=== PATIENT | male | born 1985 | race American Indian/Alaskan Native ===

== ENCOUNTER 2022-08-19 21:04 | Emergency (ER) | payer MEDICAID ==
[2022-08-19] MEDS ORDERED: Sodium Chloride 0.9% 10 ML Syringe FLUSH PRN (21:12)
[2022-08-19] MEDS ORDERED: Thiamine 100 MG in Sodium Chloride 0.9% 50 ML IV ONE (21:13)
[2022-08-19] MEDS ORDERED: Sodium Chloride 0.9% 1,000 ML IV ONE (21:13)
[2022-08-19] MEDS ORDERED: LORazepam 2 MG/ML SDV IVPUSH ONE (21:13)
[2022-08-19 21:38] LABS: BASOPHILS ABSOLUTE AUTO 0.1 x10-3/uL (0.0-0.3); EOSINOPHILS ABSOLUTE AUTO 0.1 x10-3/uL (0.0-0.6); EOSINOPHILS PERCENT AUTO 0.8 % (0.1-6.8); HEMATOCRIT 50.8 % (38.3-50.1); HEMOGLOBIN 17.6 g/dL (12.9-17.7); LYMPHOCYTES ABSOLUTE AUTO 3.7 x10-3/uL (0.5-4.5); LYMPHOCYTES PERCENT AUTO 48.1 % (15.8-45.3); MEAN CORPUSCULAR HEMOGLOBIN 31.8 pg (27.0-33.3); MEAN CORPUSCULAR HGB CONC 34.7 g/dL (28.7-35.3); MEAN CORPUSCULAR VOLUME 91.5 fL (80.8-98.7); MEAN PLATELET VOLUME 8.2 fL (6.7-11.0); MONOCYTES ABSOLUTE AUTO 0.4 x10-3/uL (0.0-1.2); MONOCYTES PERCENT AUTO 5.9 % (5.5-15.2); NEUTROPHILS ABSOLUTE AUTO 3.4 x10-3/uL (1.7-6.9); NEUTROPHILS PERCENT AUTO 44.2 % (40.3-71.8); PLATELET COUNT,PLT 229 x10(3)uL (117-477); RED BLOOD CELL COUNT 5.55 x10(6)uL (3.90-5.90); RED CELL DISTRIBUTION WIDTH 14.4 % (12.4-15.0); WHITE BLOOD CELL COUNT,WBC 7.6 x10-3/uL (3.2-10.1)
[2022-08-19 21:39] LABS: BLOOD UREA NITROGEN,BUN 10 mg/dL (7-18); BUN/CREATININE RATIO 12.5 (9-20); CALCIUM 8.7 mg/dL (8.6-10.2); CARBON DIOXIDE,CO2 28 mmol/L (21-32); CHLORIDE,CL 103 mmol/L (100-110); CREATININE 0.8 mg/dL (0.70-1.30); ESTIMATED GFR 118 mL/min (>60); GLUCOSE RANDOM 276 mg/dL (80-116); POTASSIUM,K 3.7 mmol/L (3.5-5.3); SODIUM,NA 143 mmol/L (135-145)
[2022-08-19 21:45] LABS: ALANINE AMINOTRANSFERASE,ALT 48 U/L (12-36); ALKALINE PHOSPHATASE 134 IU/L (56-112); ASPARTATE AMNIOTRANSFERASE,AST 24 IU/L (5-25); BILIRUBIN TOTAL 0.2 mg/dL (0.1-1.3)
[2022-08-19] MEDS ORDERED: LORazepam 2 MG/ML SDV IVPUSH PRN (22:11)
[2022-08-19] MEDS ORDERED: Sodium Chloride 0.9% 1,000 ML IV SCH (22:15)
[2022-08-20] MEDS: Ondansetron 4 MG/2 ML SDV IVPUSH SCH (06:00)
== END 2022-08-20 06:02 | disposition home or self-care (01) ==
LOC: FB.ED 21:04
DX: F10.229 Alcohol dependence with intoxication, unspecified (principal); Y90.2 Blood alcohol level of 40-59 mg/100 ml
CPT/HCPCS: 36415; 80053; 80307; 85025; 96361; 96365; 96375; 99284; J2060; J3411; J3490; J7030

== ENCOUNTER 2022-09-01 12:18 | Inpatient (IN) | payer MEDICAID ==
[2022-09-01] MEDS: Sodium Chloride 0.9% 10 ML Syringe FLUSH PRN ×3 (12:20→19:25)
[2022-09-01] MEDS ORDERED: Sodium Chloride 0.9% 1,000 ML IV ONE (12:58)
[2022-09-01] MEDS ORDERED: Ondansetron 4 MG/2 ML SDV IVPUSH ONE (12:58)
[2022-09-01 13:23] LABS: BASOPHILS PERCENT AUTO 0.5 % (0.3-3.8); EOSINOPHILS PERCENT AUTO 0.2 % (0.1-6.8); HEMATOCRIT 43.9 % (38.3-50.1); HEMOGLOBIN 15.6 g/dL (12.9-17.7); LYMPHOCYTES ABSOLUTE AUTO 0.6 x10-3/uL (0.5-4.5); LYMPHOCYTES PERCENT AUTO 10.6 % (15.8-45.3); MEAN CORPUSCULAR HEMOGLOBIN 31.5 pg (27.0-33.3); MEAN CORPUSCULAR HGB CONC 35.5 g/dL (28.7-35.3); MEAN CORPUSCULAR VOLUME 88.7 fL (80.8-98.7); MEAN PLATELET VOLUME 8.2 fL (6.7-11.0); MONOCYTES ABSOLUTE AUTO 0.6 x10-3/uL (0.0-1.2); MONOCYTES PERCENT AUTO 10.8 % (5.5-15.2); NEUTROPHILS ABSOLUTE AUTO 4.1 x10-3/uL (1.7-6.9); NEUTROPHILS PERCENT AUTO 77.9 % (40.3-71.8); PLATELET COUNT,PLT 123 x10(3)uL (117-477); RED BLOOD CELL COUNT 4.95 x10(6)uL (3.90-5.90); RED CELL DISTRIBUTION WIDTH 13.6 % (12.4-15.0); WHITE BLOOD CELL COUNT,WBC 5.3 x10-3/uL (3.2-10.1)
[2022-09-01 13:28] LABS: ALANINE AMINOTRANSFERASE,ALT 127 U/L (12-36); ALBUMIN 3.9 g/dL (3.5-5.2); ALKALINE PHOSPHATASE 140 IU/L (56-112); ASPARTATE AMNIOTRANSFERASE,AST 110 IU/L (5-25); BILIRUBIN TOTAL 1.8 mg/dL (0.1-1.3); BLOOD UREA NITROGEN,BUN 6 mg/dL (7-18); CALCIUM 9.4 mg/dL (8.6-10.2); CARBON DIOXIDE,CO2 19 mmol/L (21-32); CREATINE KINASE,CK 106 IU/L (60-160); CREATININE 0.6 mg/dL (0.70-1.30); EST CRCL DRUG DOSING (CG) 171.84 mL/min; ESTIMATED GFR 129 mL/min (>60); GLUCOSE RANDOM 189 mg/dL (80-116); MAGNESIUM 1.5 mg/dL (1.8-2.5); PROTEIN TOTAL,TP 7.9 g/dL (6.0-8.0); SODIUM,NA 126 mmol/L (135-145)
[2022-09-01 13:30] LABS: POTASSIUM,K 2.8 mmol/L (3.5-5.3)
[2022-09-01 13:31] LABS: CHLORIDE,CL 85 mmol/L (100-110)
[2022-09-01 13:32] LABS: ETHANOL BLOOD MEDICAL 0.06 % (<0.03); TROPONIN I 12.2 pg/mL (4.0-60.3)
[2022-09-01 13:33] LABS: C-REACTIVE PROTEIN < 0.2 mg/dL (0.5-0.9)
[2022-09-01 14:31] LABS: BILIRUBIN,URINE NEGATIVE (NEGATIVE); GLUCOSE,URINE 250 mg/dL (NORMAL); KETONES,URINE 50 mg/dL (NEGATIVE); LEUKOCYTE ESTERASE,URINE NEGATIVE (NEGATIVE); NITRITE,URINE NEGATIVE (NEGATIVE); OCCULT BLOOD,URINE NEGATIVE (NEGATIVE); PROTEIN,URINE NEGATIVE (NEGATIVE); UROBILINOGEN,URINE NORMAL (NEGATIVE)
[2022-09-01 14:35] LABS: APPEARANCE,URINE CLEAR (CLEAR); BACTERIA,URINE OCCASIONAL (NS); COLOR,URINE YELLOW (YELLOW); SQUAMOUS EPITHELIAL CELLS,UR RARE (NS,R,O); WBC,URINE 0-5 (0-5)
[2022-09-01 14:38] LABS: AMPHETAMINES SCREEN, URINE NEGATIVE (NEGATIVE); BARBITURATE SCREEN,URINE NEGATIVE (NEGATIVE); BENZODIAZEPINES SCREEN,URINE NEGATIVE (NEGATIVE); METHADONE SCREEN, URINE NEGATIVE (NEGATIVE); METHAMPHETAMINE SCREEN, URINE NEGATIVE (NEGATIVE); OXYCODONE SCREEN,URINE NEGATIVE (NEGATIVE); PROPOXYPHENE SCREEN,URINE NEGATIVE (NEGATIVE); THC SCREEN,URINE NEGATIVE (NEGATIVE)
[2022-09-01 14:39] LABS: BUPRENORPHINE SCREEN,URINE NEGATIVE (NEGATIVE)
[2022-09-01] MEDS ORDERED: Potassium Chloride 20 MEQ Tab.ER PO ONE (14:51)
[2022-09-01] MEDS ORDERED: Sodium Chloride 0.9% 500 ML IV ONE (14:51)
[2022-09-01] MEDS ORDERED: Potassium Chloride 10 MEQ in Premix Bag 1 BAG IV ONE (14:51)
[2022-09-01] MEDS ORDERED: Magnesium Sulfate/Water 2 GM in Premix Bag 1 BAG IV ONE (14:53)
[2022-09-01] MEDS ORDERED: Iopamidol 755 Mg/ML 100 ML Bottle IV SCH (15:15)
[2022-09-01] MEDS ORDERED: Ketorolac 30 MG/ML SDV IVPUSH ONE (15:46)
[2022-09-01] MEDS ORDERED: Folic Acid 50 MG/10 ML MDV SUBCUT ONE (16:38)
[2022-09-01] MEDS ORDERED: Lactated Ringers 1,000 ML IV SCH ×2 (16:45→16:57)
[2022-09-01] MEDS ORDERED: Thiamine 100 MG in Sodium Chloride 0.9% 50 ML IV SCH (16:45)
[2022-09-01] MEDS: Sodium Chloride 0.9% 1,000 ML IV SCH ×2 (17:59→21:59)
[2022-09-01] MEDS: HYDROmorphone 2 MG/ML SDV IVPUSH PRN ×3 (18:06→22:37)
[2022-09-01] MEDS: Ondansetron 4 MG/2 ML SDV IV PRN (18:08)
[2022-09-01] MEDS: Pantoprazole 40 MG Vial IVPUSH SCH (18:17)
[2022-09-01] MEDS: Thiamine 100 MG in Sodium Chloride 0.9% 100 ML IV SCH (18:57)
[2022-09-01 19:07] LABS: HEMOGLOBIN A1C 9.1 % (<5.7)
[2022-09-01] MEDS: Ketorolac 30 MG/ML SDV IVPUSH PRN (19:26)
[2022-09-01] MEDS ORDERED: Aspirin 81 MG Tab.Chew PO ONE (21:47)
[2022-09-01] MEDS: LORazepam 2 MG/ML SDV IV SCH (23:12)
[2022-09-02] MEDS: LORazepam 2 MG/ML SDV IV SCH ×2 (00:16→12:51)
[2022-09-02] MEDS: HYDROmorphone 2 MG/ML SDV IVPUSH PRN ×5 (02:46→18:54)
[2022-09-02] MEDS: Pantoprazole 40 MG Vial IVPUSH SCH ×2 (05:18→17:08)
[2022-09-02 06:23] LABS: BASOPHILS PERCENT AUTO 0.5 % (0.3-3.8); EOSINOPHILS ABSOLUTE AUTO 0.1 x10-3/uL (0.0-0.6); EOSINOPHILS PERCENT AUTO 2.4 % (0.1-6.8); HEMATOCRIT 39.4 % (38.3-50.1); HEMOGLOBIN 13.7 g/dL (12.9-17.7); LYMPHOCYTES ABSOLUTE AUTO 1.4 x10-3/uL (0.5-4.5); LYMPHOCYTES PERCENT AUTO 25.2 % (15.8-45.3); MEAN CORPUSCULAR HEMOGLOBIN 31.4 pg (27.0-33.3); MEAN CORPUSCULAR HGB CONC 34.9 g/dL (28.7-35.3); MEAN PLATELET VOLUME 8.3 fL (6.7-11.0); MONOCYTES ABSOLUTE AUTO 0.5 x10-3/uL (0.0-1.2); MONOCYTES PERCENT AUTO 8.9 % (5.5-15.2); NEUTROPHILS ABSOLUTE AUTO 3.4 x10-3/uL (1.7-6.9); PLATELET COUNT,PLT 99 x10(3)uL (117-477); RED BLOOD CELL COUNT 4.37 x10(6)uL (3.90-5.90); RED CELL DISTRIBUTION WIDTH 13.7 % (12.4-15.0); WHITE BLOOD CELL COUNT,WBC 5.4 x10-3/uL (3.2-10.1)
[2022-09-02 06:30] LABS: BLOOD UREA NITROGEN,BUN 4 mg/dL (7-18); BUN/CREATININE RATIO 6.7 (9-20); CALCIUM 7.8 mg/dL (8.6-10.2); CARBON DIOXIDE,CO2 22 mmol/L (21-32); CHLORIDE,CL 97 mmol/L (100-110); CREATININE 0.6 mg/dL (0.70-1.30); EST CRCL DRUG DOSING (CG) 171.84 mL/min; ESTIMATED GFR 129 mL/min (>60); GLUCOSE RANDOM 107 mg/dL (80-116); MAGNESIUM 1.7 mg/dL (1.8-2.5); SODIUM,NA 135 mmol/L (135-145)
[2022-09-02] MEDS: Sodium Chloride 0.9% 1,000 ML IV SCH ×3 (06:37→19:47)
[2022-09-02 06:57] LABS: POTASSIUM,K 2.6 mmol/L (3.5-5.3)
[2022-09-02 06:58] LABS: TROPONIN I 29.1 pg/mL (4.0-60.3)
[2022-09-02] MEDS: Thiamine 100 MG in Sodium Chloride 0.9% 100 ML IV SCH (08:08)
[2022-09-02] MEDS ORDERED: Magnesium Sulfate/Water 2 GM in Premix Bag 1 BAG IV ONE (09:57)
[2022-09-02] MEDS ORDERED: Silver Sulfadiazine 1% Crm 400 GM Jar TOP SCH (10:15)
[2022-09-02] MEDS ORDERED: 50% Dextrose in Water 50 ML Syringe IVPUSH PRN ×2 (10:23→10:26)
[2022-09-02] MEDS ORDERED: Glucagon,Human Recombinant 1 MG Vial IM PRN ×2 (10:23→10:26)
[2022-09-02] MEDS: Potassium Chloride 20 MEQ Tab.ER PO SCH ×2 (10:29→20:06)
[2022-09-02] MEDS ORDERED: Enoxaparin 40 MG/0.4 ML Syringe SUBCUT SCH (10:30)
[2022-09-02] MEDS: Insulin Glargine,Human Rec. Analog 100 Units/ML 3 ML Pen SUBCUT SCH (11:02)
[2022-09-02] MEDS: Silver Sulfadiazine 1% Crm 50 GM Tube TOP SCH ×2 (11:15→20:08)
[2022-09-02] MEDS: Insulin Lispro 100 Unit/ML 3 ML KwikPen SUBCUT SCH ×2 (12:11→18:10)
[2022-09-02] MEDS ORDERED: Lisinopril 20 MG Tab PO ONE (15:00)
[2022-09-02] MEDS ORDERED: LORazepam 1 MG Tab PO PRN (16:12)
[2022-09-02] MEDS ORDERED: diphenhydrAMINE 25 MG Cap PO PRN (16:42)
[2022-09-02] MEDS: atorvaSTATin 10 MG Tab PO SCH (20:06)
[2022-09-03] MEDS: Ketorolac 30 MG/ML SDV IVPUSH PRN (01:53)
[2022-09-03] MEDS: Sodium Chloride 0.9% 1,000 ML IV SCH ×4 (01:58→22:33)
[2022-09-03] MEDS: Pantoprazole 40 MG Vial IVPUSH SCH (04:17)
[2022-09-03 06:50] LABS: BASOPHILS PERCENT AUTO 0.8 % (0.3-3.8); EOSINOPHILS ABSOLUTE AUTO 0.1 x10-3/uL (0.0-0.6); HEMATOCRIT 43.3 % (38.3-50.1); LYMPHOCYTES ABSOLUTE AUTO 1.2 x10-3/uL (0.5-4.5); LYMPHOCYTES PERCENT AUTO 20.1 % (15.8-45.3); MEAN CORPUSCULAR HEMOGLOBIN 31.1 pg (27.0-33.3); MEAN CORPUSCULAR HGB CONC 34.5 g/dL (28.7-35.3); MEAN CORPUSCULAR VOLUME 89.9 fL (80.8-98.7); MEAN PLATELET VOLUME 8.3 fL (6.7-11.0); MONOCYTES ABSOLUTE AUTO 0.7 x10-3/uL (0.0-1.2); NEUTROPHILS PERCENT AUTO 66.1 % (40.3-71.8); PLATELET COUNT,PLT 111 x10(3)uL (117-477); RED BLOOD CELL COUNT 4.81 x10(6)uL (3.90-5.90); RED CELL DISTRIBUTION WIDTH 13.5 % (12.4-15.0)
[2022-09-03 07:00] LABS: ALANINE AMINOTRANSFERASE,ALT 95 U/L (12-36); ALBUMIN 3.4 g/dL (3.5-5.2); ALKALINE PHOSPHATASE 116 IU/L (56-112); ASPARTATE AMNIOTRANSFERASE,AST 79 IU/L (5-25); BILIRUBIN TOTAL 1.4 mg/dL (0.1-1.3); BLOOD UREA NITROGEN,BUN 2 mg/dL (7-18); CALCIUM 8.5 mg/dL (8.6-10.2); CARBON DIOXIDE,CO2 31 mmol/L (21-32); CHLORIDE,CL 97 mmol/L (100-110); CREATININE 0.5 mg/dL (0.70-1.30); EST CRCL DRUG DOSING (CG) 206.21 mL/min; ESTIMATED GFR 136 mL/min (>60); GLUCOSE RANDOM 164 mg/dL (80-116); POTASSIUM,K 2.9 mmol/L (3.5-5.3); PROTEIN TOTAL,TP 6.9 g/dL (6.0-8.0); SODIUM,NA 135 mmol/L (135-145)
[2022-09-03 07:02] LABS: TROPONIN I 11.4 pg/mL (4.0-60.3)
[2022-09-03] MEDS ORDERED: Polyethylene Glycol 3350 Powder 17 GM Packet PO ONE (08:05)
[2022-09-03] MEDS: Potassium Chloride 20 MEQ Tab.ER PO SCH ×2 (08:19→20:18)
[2022-09-03] MEDS: Insulin Lispro 100 Unit/ML 3 ML KwikPen SUBCUT SCH ×3 (08:20→18:20)
[2022-09-03] MEDS: Silver Sulfadiazine 1% Crm 50 GM Tube TOP SCH ×2 (08:21→20:19)
[2022-09-03] MEDS: Insulin Glargine,Human Rec. Analog 100 Units/ML 3 ML Pen SUBCUT SCH (08:22)
[2022-09-03] MEDS: Thiamine 100 MG Tab PO SCH (09:44)
[2022-09-03] MEDS: Lisinopril 20 MG Tab PO SCH (09:44)
[2022-09-03] MEDS: Ondansetron 4 MG/2 ML SDV IV PRN (15:39)
[2022-09-03] MEDS: Pantoprazole 40 MG Tab.CR PO SCH (16:56)
[2022-09-03] MEDS: atorvaSTATin 10 MG Tab PO SCH (20:19)
[2022-09-04] MEDS ORDERED: Sennosides/Docusate Sodium 50-8.6 MG Tab PO ONE ×2 (03:47→12:33)
[2022-09-04] MEDS ORDERED: Folic Acid 0.8 MG Tab PO SCH (03:47)
[2022-09-04] MEDS ORDERED: Enoxaparin 40 MG/0.4 ML Syringe SUBCUT SCH (04:00)
[2022-09-04] MEDS: Sodium Chloride 0.9% 1,000 ML IV SCH ×3 (05:21→22:35)
[2022-09-04] MEDS: Pantoprazole 40 MG Tab.CR PO SCH ×2 (05:25→17:00)
[2022-09-04 06:49] LABS: A/G RATIO 0.9; ALANINE AMINOTRANSFERASE,ALT 89 U/L (12-36); ALBUMIN 3.2 g/dL (3.5-5.2); ALKALINE PHOSPHATASE 116 IU/L (56-112); ASPARTATE AMNIOTRANSFERASE,AST 61 IU/L (5-25); BILIRUBIN TOTAL 0.7 mg/dL (0.1-1.3); BLOOD UREA NITROGEN,BUN 1 mg/dL (7-18); CALCIUM 8.8 mg/dL (8.6-10.2); CARBON DIOXIDE,CO2 27 mmol/L (21-32); CHLORIDE,CL 103 mmol/L (100-110); CREATININE 0.5 mg/dL (0.70-1.30); EST CRCL DRUG DOSING (CG) 206.21 mL/min; ESTIMATED GFR 136 mL/min (>60); GLUCOSE RANDOM 158 mg/dL (80-116); MAGNESIUM 1.8 mg/dL (1.8-2.5); POTASSIUM,K 3.4 mmol/L (3.5-5.3); PROTEIN TOTAL,TP 6.6 g/dL (6.0-8.0); SODIUM,NA 139 mmol/L (135-145)
[2022-09-04] MEDS: Insulin Glargine,Human Rec. Analog 100 Units/ML 3 ML Pen SUBCUT SCH (09:14)
[2022-09-04] MEDS: Insulin Lispro 100 Unit/ML 3 ML KwikPen SUBCUT SCH ×3 (09:14→18:13)
[2022-09-04] MEDS: Lisinopril 20 MG Tab PO SCH (09:15)
[2022-09-04] MEDS: Silver Sulfadiazine 1% Crm 50 GM Tube TOP SCH ×2 (09:15→21:21)
[2022-09-04] MEDS: Potassium Chloride 20 MEQ Tab.ER PO SCH ×2 (09:15→21:21)
[2022-09-04] MEDS: Thiamine 100 MG Tab PO SCH (09:16)
[2022-09-04] MEDS: Polyethylene Glycol 3350 Powder 17 GM Packet PO SCH ×2 (13:16→21:21)
[2022-09-04] MEDS: atorvaSTATin 10 MG Tab PO SCH (21:21)
[2022-09-05] MEDS: Pantoprazole 40 MG Tab.CR PO SCH ×2 (05:55→17:56)
[2022-09-05 06:02] LABS: A/G RATIO 0.9; ALANINE AMINOTRANSFERASE,ALT 94 U/L (12-36); ALBUMIN 3.4 g/dL (3.5-5.2); ALKALINE PHOSPHATASE 125 IU/L (56-112); ASPARTATE AMNIOTRANSFERASE,AST 56 IU/L (5-25); BILIRUBIN TOTAL 0.5 mg/dL (0.1-1.3); BLOOD UREA NITROGEN,BUN 3 mg/dL (7-18); CALCIUM 9.2 mg/dL (8.6-10.2); CARBON DIOXIDE,CO2 27 mmol/L (21-32); CHLORIDE,CL 100 mmol/L (100-110); CREATININE 0.6 mg/dL (0.70-1.30); EST CRCL DRUG DOSING (CG) 171.84 mL/min; ESTIMATED GFR 129 mL/min (>60); GLUCOSE RANDOM 177 mg/dL (80-116); MAGNESIUM 1.7 mg/dL (1.8-2.5); POTASSIUM,K 3.8 mmol/L (3.5-5.3); SODIUM,NA 135 mmol/L (135-145)
[2022-09-05 06:03] LABS: BASOPHILS ABSOLUTE AUTO 0.1 x10-3/uL (0.0-0.3); BASOPHILS PERCENT AUTO 0.6 % (0.3-3.8); EOSINOPHILS ABSOLUTE AUTO 0.1 x10-3/uL (0.0-0.6); EOSINOPHILS PERCENT AUTO 1.2 % (0.1-6.8); HEMATOCRIT 40.4 % (38.3-50.1); HEMOGLOBIN 13.9 g/dL (12.9-17.7); LYMPHOCYTES ABSOLUTE AUTO 1.7 x10-3/uL (0.5-4.5); LYMPHOCYTES PERCENT AUTO 18.7 % (15.8-45.3); MEAN CORPUSCULAR HEMOGLOBIN 31.5 pg (27.0-33.3); MEAN CORPUSCULAR HGB CONC 34.4 g/dL (28.7-35.3); MEAN CORPUSCULAR VOLUME 91.6 fL (80.8-98.7); MEAN PLATELET VOLUME 8.4 fL (6.7-11.0); MONOCYTES PERCENT AUTO 10.7 % (5.5-15.2); NEUTROPHILS ABSOLUTE AUTO 6.2 x10-3/uL (1.7-6.9); NEUTROPHILS PERCENT AUTO 68.8 % (40.3-71.8); PLATELET COUNT,PLT 139 x10(3)uL (117-477); RED BLOOD CELL COUNT 4.41 x10(6)uL (3.90-5.90); RED CELL DISTRIBUTION WIDTH 13.9 % (12.4-15.0)
[2022-09-05] MEDS ORDERED: Magnesium Sulfate/Water 2 GM in Premix Bag 1 BAG IV ONE (07:03)
[2022-09-05] MEDS: Sodium Chloride 0.9% 1,000 ML IV SCH ×2 (08:23→19:48)
[2022-09-05] MEDS: Insulin Lispro 100 Unit/ML 3 ML KwikPen SUBCUT SCH ×3 (09:22→17:57)
[2022-09-05] MEDS: Potassium Chloride 20 MEQ Tab.ER PO SCH ×2 (09:24→21:25)
[2022-09-05] MEDS: Insulin Glargine,Human Rec. Analog 100 Units/ML 3 ML Pen SUBCUT SCH (09:25)
[2022-09-05] MEDS: Thiamine 100 MG Tab PO SCH (09:27)
[2022-09-05] MEDS: Lisinopril 20 MG Tab PO SCH (09:27)
[2022-09-05] MEDS: Silver Sulfadiazine 1% Crm 50 GM Tube TOP SCH ×2 (09:28→21:25)
[2022-09-05] MEDS: Polyethylene Glycol 3350 Powder 17 GM Packet PO SCH ×2 (09:29→21:25)
[2022-09-05] MEDS: Sennosides/Docusate Sodium 50-8.6 MG Tab PO SCH ×2 (09:29→21:25)
[2022-09-05] MEDS: atorvaSTATin 10 MG Tab PO SCH (21:25)
[2022-09-06] MEDS: Pantoprazole 40 MG Tab.CR PO SCH ×2 (05:55→16:33)
[2022-09-06] MEDS: Sodium Chloride 0.9% 1,000 ML IV SCH ×2 (05:56→16:30)
[2022-09-06] MEDS: Thiamine 100 MG Tab PO SCH (08:02)
[2022-09-06] MEDS: Lisinopril 20 MG Tab PO SCH (08:03)
[2022-09-06] MEDS: Sennosides/Docusate Sodium 50-8.6 MG Tab PO SCH (08:03)
[2022-09-06] MEDS: Silver Sulfadiazine 1% Crm 50 GM Tube TOP SCH (08:03)
[2022-09-06] MEDS: Polyethylene Glycol 3350 Powder 17 GM Packet PO SCH (08:03)
[2022-09-06] MEDS: Potassium Chloride 20 MEQ Tab.ER PO SCH (08:04)
[2022-09-06] MEDS: Insulin Lispro 100 Unit/ML 3 ML KwikPen SUBCUT SCH ×2 (08:05→12:08)
[2022-09-06] MEDS: Insulin Glargine,Human Rec. Analog 100 Units/ML 3 ML Pen SUBCUT SCH (08:05)
[2022-09-06 09:57] LABS: BLOOD UREA NITROGEN,BUN 4 mg/dL (7-18); BUN/CREATININE RATIO 6.7 (9-20); CALCIUM 9.4 mg/dL (8.6-10.2); CARBON DIOXIDE,CO2 30 mmol/L (21-32); CHLORIDE,CL 99 mmol/L (100-110); CREATININE 0.6 mg/dL (0.70-1.30); EST CRCL DRUG DOSING (CG) 171.84 mL/min; ESTIMATED GFR 129 mL/min (>60); GLUCOSE RANDOM 242 mg/dL (80-116); POTASSIUM,K 4.2 mmol/L (3.5-5.3); SODIUM,NA 136 mmol/L (135-145)
[2022-09-06] MEDS ORDERED: Iopamidol 755 Mg/ML 100 ML Bottle IV ONE (12:28)
== END 2022-09-06 17:10 | DRG 439 ==
LOC: FB.ED 12:18 → FB.MS 16:20
PROVIDERS: ADMIT Student in an Organized Health Care Education/Training Program; ATTEND Student in an Organized Health Care Education/Training Program
DX: K85.20 Alcohol induced acute pancreatitis without necrosis or infection (principal); E87.1 Hypo-osmolality and hyponatremia; F10.239 Alcohol dependence with withdrawal, unspecified; F10.229 Alcohol dependence with intoxication, unspecified; E87.6 Hypokalemia; E83.42 Hypomagnesemia; E11.69 Type 2 diabetes mellitus with other specified complication; E66.9 Obesity, unspecified; F17.200 Nicotine dependence, unspecified, uncomplicated; R07.89 Other chest pain; R00.0 Tachycardia, unspecified; T21.14XA Burn of first degree of lower back, initial encounter; F32.A Depression, unspecified; E78.2 Mixed hyperlipidemia; Z79.4 Long term (current) use of insulin; Z99.81 Dependence on supplemental oxygen; Z68.29 Body mass index [BMI] 29.0-29.9, adult
CPT/HCPCS: 36415; 71045; 74177; 80048; 80053; 80061; 80307; 81001; 82550; 82947; 83036; 83605; 83690; 83735; 84484; 85025; 86140; 93005; 93010; 96361; 96365; 96367; 96375; 99223; 99232; 99233; 99239; 99285; 99285-25; A9270-GY; C9113; J1170; J1815; J1815-GY; J1885; J2060; J2405; J3411; J3475; J3480; J3490; J7030; J7040; Q9967

== ENCOUNTER 2022-09-23 14:26 | Inpatient (IN) | payer MEDICAID ==
[2022-09-23] MEDS ORDERED: PHENobarbitaL sodium 260 MG in Sodium Chloride 0.9% 100 ML IV ONE (14:40)
[2022-09-23] MEDS ORDERED: Thiamine 200 MG/2 ML MDV IVPUSH ONE (14:43)
[2022-09-23] MEDS ORDERED: Sodium Chloride 0.9% 1,000 ML IV SCH ×2 (14:45→16:00)
[2022-09-23] MEDS ORDERED: Folic Acid 50 MG/10 ML MDV IV STA (14:46)
[2022-09-23 15:17] LABS: BASOPHILS ABSOLUTE AUTO 0.1 x10-3/uL (0.0-0.3); BASOPHILS PERCENT AUTO 0.9 % (0.3-3.8); EOSINOPHILS PERCENT AUTO 0.2 % (0.1-6.8); HEMATOCRIT 46.1 % (38.3-50.1); HEMOGLOBIN 15.8 g/dL (12.9-17.7); LYMPHOCYTES ABSOLUTE AUTO 0.8 x10-3/uL (0.5-4.5); MEAN CORPUSCULAR HEMOGLOBIN 31.1 pg (27.0-33.3); MEAN CORPUSCULAR HGB CONC 34.4 g/dL (28.7-35.3); MEAN CORPUSCULAR VOLUME 90.6 fL (80.8-98.7); MEAN PLATELET VOLUME 7.7 fL (6.7-11.0); MONOCYTES ABSOLUTE AUTO 0.6 x10-3/uL (0.0-1.2); MONOCYTES PERCENT AUTO 10.6 % (5.5-15.2); NEUTROPHILS ABSOLUTE AUTO 4.3 x10-3/uL (1.7-6.9); NEUTROPHILS PERCENT AUTO 74.3 % (40.3-71.8); PLATELET COUNT,PLT 158 x10(3)uL (117-477); RED BLOOD CELL COUNT 5.09 x10(6)uL (3.90-5.90); RED CELL DISTRIBUTION WIDTH 14.9 % (12.4-15.0); WHITE BLOOD CELL COUNT,WBC 5.8 x10-3/uL (3.2-10.1)
[2022-09-23 15:18] LABS: BLOOD UREA NITROGEN,BUN 2 mg/dL (7-18); BUN/CREATININE RATIO 3.3 (9-20); CALCIUM 9.5 mg/dL (8.6-10.2); CARBON DIOXIDE,CO2 27 mmol/L (21-32); CHLORIDE,CL 97 mmol/L (100-110); CREATININE 0.6 mg/dL (0.70-1.30); EST CRCL DRUG DOSING (CG) 171.84 mL/min; ESTIMATED GFR 129 mL/min (>60); GLUCOSE RANDOM 252 mg/dL (80-116); POTASSIUM,K 3.4 mmol/L (3.5-5.3); SODIUM,NA 136 mmol/L (135-145)
[2022-09-23 15:34] LABS: A/G RATIO 1.2; ALBUMIN 4.3 g/dL (3.5-5.2); ALKALINE PHOSPHATASE 140 IU/L (56-112); ASPARTATE AMNIOTRANSFERASE,AST 90 IU/L (5-25); BILIRUBIN TOTAL 1.7 mg/dL (0.1-1.3); MAGNESIUM 1.4 mg/dL (1.8-2.5); PHOSPHORUS 2.9 mg/dL (2.6-4.6); PROTEIN TOTAL,TP 7.9 g/dL (6.0-8.0)
[2022-09-23 15:36] LABS: ALANINE AMINOTRANSFERASE,ALT 170 U/L (12-36)
[2022-09-23 16:08] LABS: HEMOGLOBIN A1C 8.7 % (<5.7)
[2022-09-23] MEDS ORDERED: Sodium Chloride 0.9% 10 ML Syringe FLUSH ONE (16:29)
[2022-09-23 16:53] LABS: BILIRUBIN,URINE NEGATIVE (NEGATIVE); GLUCOSE,URINE >1000 mg/dL (NORMAL); KETONES,URINE NEGATIVE (NEGATIVE); LEUKOCYTE ESTERASE,URINE NEGATIVE (NEGATIVE); NITRITE,URINE NEGATIVE (NEGATIVE); OCCULT BLOOD,URINE NEGATIVE (NEGATIVE); PROTEIN,URINE NEGATIVE (NEGATIVE); UROBILINOGEN,URINE NORMAL (NEGATIVE)
[2022-09-23 17:00] LABS: APPEARANCE,URINE CLEAR (CLEAR); COLOR,URINE YELLOW (YELLOW); SQUAMOUS EPITHELIAL CELLS,UR OCCASIONAL (NS,R,O); WBC,URINE 0-5 (0-5)
[2022-09-23 17:01] LABS: BACTERIA,URINE OCCASIONAL (NS); YEAST,URINE OCCASIONAL (NS)
[2022-09-23] MEDS ORDERED: Magnesium Sulfate/Water 2 GM in Premix Bag 1 BAG IV ONE (17:12)
[2022-09-23] MEDS ORDERED: Glucagon,Human Recombinant 1 MG Vial IM PRN (18:41)
[2022-09-23] MEDS ORDERED: 50% Dextrose in Water 50 ML Syringe IVPUSH PRN (18:41)
[2022-09-23] MEDS ORDERED: LORazepam 2 MG/ML SDV IV SCH (18:45)
[2022-09-23] MEDS ORDERED: LORazepam 1 MG Tab PO SCH (18:45)
[2022-09-23] MEDS ORDERED: Sodium Chloride 0.9% 10 ML Syringe FLUSH PRN (19:11)
[2022-09-23] MEDS: Sodium Chloride 0.9% 1,000 ML IV SCH ×2 (19:34→23:36)
[2022-09-23] MEDS ORDERED: Acetaminophen 650 MG Supp RECTAL PRN (23:27)
[2022-09-24] MEDS: Sodium Chloride 0.9% 1,000 ML IV SCH ×3 (03:45→19:44)
[2022-09-24 06:37] LABS: BASOPHILS ABSOLUTE AUTO 0.1 x10-3/uL (0.0-0.3); BASOPHILS PERCENT AUTO 1.5 % (0.3-3.8); EOSINOPHILS ABSOLUTE AUTO 0.1 x10-3/uL (0.0-0.6); LYMPHOCYTES ABSOLUTE AUTO 1.5 x10-3/uL (0.5-4.5); LYMPHOCYTES PERCENT AUTO 32.6 % (15.8-45.3); MEAN CORPUSCULAR HEMOGLOBIN 31.4 pg (27.0-33.3); MEAN CORPUSCULAR VOLUME 92.3 fL (80.8-98.7); MEAN PLATELET VOLUME 7.5 fL (6.7-11.0); MONOCYTES ABSOLUTE AUTO 0.7 x10-3/uL (0.0-1.2); MONOCYTES PERCENT AUTO 15.2 % (5.5-15.2); NEUTROPHILS ABSOLUTE AUTO 2.2 x10-3/uL (1.7-6.9); NEUTROPHILS PERCENT AUTO 48.7 % (40.3-71.8); PLATELET COUNT,PLT 136 x10(3)uL (117-477); RED BLOOD CELL COUNT 4.44 x10(6)uL (3.90-5.90); RED CELL DISTRIBUTION WIDTH 14.6 % (12.4-15.0); WHITE BLOOD CELL COUNT,WBC 4.6 x10-3/uL (3.2-10.1)
[2022-09-24 06:50] LABS: A/G RATIO 1.1; ALANINE AMINOTRANSFERASE,ALT 117 U/L (12-36); ALBUMIN 3.5 g/dL (3.5-5.2); ALKALINE PHOSPHATASE 110 IU/L (56-112); ASPARTATE AMNIOTRANSFERASE,AST 54 IU/L (5-25); BILIRUBIN TOTAL 1.4 mg/dL (0.1-1.3); BLOOD UREA NITROGEN,BUN 1 mg/dL (7-18); CALCIUM 8.1 mg/dL (8.6-10.2); CARBON DIOXIDE,CO2 26 mmol/L (21-32); CHLORIDE,CL 101 mmol/L (100-110); CREATININE 0.5 mg/dL (0.70-1.30); EST CRCL DRUG DOSING (CG) 206.21 mL/min; ESTIMATED GFR 136 mL/min (>60); GLUCOSE RANDOM 144 mg/dL (80-116); MAGNESIUM 1.9 mg/dL (1.8-2.5); POTASSIUM,K 3.4 mmol/L (3.5-5.3); PROTEIN TOTAL,TP 6.6 g/dL (6.0-8.0); SODIUM,NA 129 mmol/L (135-145)
[2022-09-24] MEDS ORDERED: Enoxaparin 40 MG/0.4 ML Syringe SUBCUT SCH (08:00)
[2022-09-24] MEDS: Insulin Lispro 100 Unit/ML 3 ML KwikPen SUBCUT SCH ×3 (08:14→17:39)
[2022-09-24] MEDS ORDERED: Potassium Chloride 20 MEQ in Premix Bag 1 BAG IV ONE (08:28)
[2022-09-24] MEDS: PHENobarbitaL sodium 130 MG in Sodium Chloride 0.9% 100 ML IV SCH ×2 (08:57→20:30)
[2022-09-24] MEDS ORDERED: Pantoprazole 40 MG Tab.CR PO SCH (09:00)
[2022-09-24] MEDS ORDERED: Thiamine 200 MG/2 ML MDV IVPUSH SCH (09:00)
[2022-09-24] MEDS ORDERED: Thiamine 100 MG in Sodium Chloride 0.9% 50 ML IV SCH (09:00)
[2022-09-24] MEDS ORDERED: Folic Acid 1 MG Tab PO SCH (09:00)
[2022-09-24] MEDS ORDERED: Thiamine 100 MG Tab PO SCH (09:00)
[2022-09-24] MEDS ORDERED: Metoprolol Succinate 25 MG Tab.ER PO SCH (09:00)
[2022-09-24] MEDS ORDERED: Pantoprazole 40 MG Vial IV SCH (09:00)
[2022-09-24] MEDS ORDERED: Acetaminophen 325 MG Tab PO PRN (09:34)
[2022-09-24] MEDS ORDERED: Insulin Lispro 100 Unit/ML 3 ML KwikPen SUBCUT ONE (11:49)
[2022-09-24] MEDS ORDERED: Losartan 25 MG Tab PO SCH (18:00)
== END 2022-09-24 22:10 | disposition left against medical advice (07) | DRG 894 ==
LOC: FB.ED 14:26 → FB.MS 18:16
PROVIDERS: ADMIT Family Medicine; ATTEND Student in an Organized Health Care Education/Training Program
DX: F10.232 Alcohol dependence with withdrawal with perceptual disturbance (principal); K85.20 Alcohol induced acute pancreatitis without necrosis or infection; G40.89 Other seizures; F10.220 Alcohol dependence with intoxication, uncomplicated; F10.20 Alcohol dependence, uncomplicated; F32.A Depression, unspecified; E11.69 Type 2 diabetes mellitus with other specified complication; E66.9 Obesity, unspecified; E87.6 Hypokalemia; E83.42 Hypomagnesemia; I10 Essential (primary) hypertension; Z68.29 Body mass index [BMI] 29.0-29.9, adult; Z79.899 Other long term (current) drug therapy; Z87.891 Personal history of nicotine dependence
CPT/HCPCS: 36415; 80053; 81001; 82550; 82947; 83036; 83690; 83735; 84100; 85025; 93005; 93010; 96361; 96365; 96367; 96375; 99222; 99238; 99284; 99285-25; A9270-GY; J1650; J1815; J2060; J2560; J3360; J3411; J3475; J3480; J3490; J7030